=== PATIENT | male | born 1945 | race Caucasian/White ===

== ENCOUNTER 2022-09-13 09:47 | Outpatient (CLI) | payer MEDICARE | END 2022-09-13 23:59 | disposition home health service (06) | LOC: WOU 09:47 | PROVIDERS: ATTEND Podiatrist Foot & Ankle Surgery | DX: S80.861A Insect bite (nonvenomous), right lower leg, initial encounter (principal); L03.115 Cellulitis of right lower limb; W57.XXXA Bitten or stung by nonvenomous insect and other nonvenomous arthropods, initial encounter; Y93.89 Activity, other specified; Y92.89 Other specified places as the place of occurrence of the external cause; I48.91 Unspecified atrial fibrillation; E11.9 Type 2 diabetes mellitus without complications; Z95.0 Presence of cardiac pacemaker | CPT/HCPCS: 11042 ==

== ENCOUNTER → 2022-09-20 | Outpatient (CLI) | payer MEDICARE | END | disposition home health service (06) | LOC: WOU 10:00 | PROVIDERS: ATTEND Podiatrist Foot & Ankle Surgery | DX: S80.861A Insect bite (nonvenomous), right lower leg, initial encounter (principal); L03.115 Cellulitis of right lower limb; W57.XXXA Bitten or stung by nonvenomous insect and other nonvenomous arthropods, initial encounter; Y93.89 Activity, other specified; Y92.89 Other specified places as the place of occurrence of the external cause; M79.661 Pain in right lower leg; E11.9 Type 2 diabetes mellitus without complications; I48.91 Unspecified atrial fibrillation; Z95.0 Presence of cardiac pacemaker | CPT/HCPCS: 11042 ==

== ENCOUNTER 2024-12-08 14:25 | Inpatient (IN) | payer MEDICARE, OTHER ==
[~2024-12-08] VITALS: Ht 175.3 cm; Wt 112.0 kg
[2024-12-08 15:36] LABS: BASOPHILS % (AUTO) 0.7 % (0.0-2.0); EOSINOPHILS % (AUTO) 0.8 % (0.0-6.0); HEMATOCRIT 36 % (39-51); HEMOGLOBIN 11.9 g/dL (13.5-17.5); LYMPHOCYTES # (AUTO) 1.5 K/uL (0.8-4.8); LYMPHOCYTES % (AUTO) 32.4 % (20.0-44.0); MEAN CORPUSCULAR HEMOGLOBIN 30 PG (26.0-33.0); MEAN CORPUSCULAR HGB CONC 33 g/dl (31.0-36.0); MEAN CORPUSCULAR VOLUME 90 fL (80-96); MONOCYTES # (AUTO) 0.3 K/uL (0.1-1.30); MONOCYTES % (AUTO) 7.2 % (2.0-12.0); NEUTROPHILS # (AUTO) 2.8 K/uL (1.8-8.9); NEUTROPHILS % (AUTO) 58.9 % (43.0-81.0); PLATELET COUNT (AUTO) 214 K/uL (150-450); RED BLOOD CELL COUNT(AUTO) 4.03 MIL/uL (4.5-6.0); RED CELL DISTRIBUTION WIDTH 20.3 % (11.5-15.0); WHITE BLOOD COUNT (AUTO) 4.8 K/uL (4.3-11.0)
[2024-12-08 15:49] LABS: CALCIUM, SERUM 9.3 mg/dL (8.5-10.1); CARBON DIOXIDE 32 mmol/L (21-32); CHLORIDE 108 mmol/L (98-107); CREATININE 1.7 mg/dL (0.6-1.3); GLUCOSE 130 mg/dL (74-106); POTASSIUM 3.9 mmol/L (3.5-5.1); SODIUM SERUM 143 mmol/L (136-145); UREA NITROGEN, BLOOD 34 mg/dL (7-18)
[2024-12-08] MEDS: VANCOMYCIN 1 GM in IV D5W 250 ML IV ONE (15:51)
[2024-12-08 15:55] LABS: ALANINE AMINOTRANSFERASE 39 U/L (12-78); ALBUMIN 2.8 g/dL (3.4-5.0); ALKALINE PHOSPHATASE 74 U/L (46-116); ASPARTATE AMINOTRANSFERASE 25 U/L (15-37); BILIRUBIN,DIRECT 0.1 mg/dL (0.0-0.2); BILIRUBIN,TOTAL 0.4 mg/dL (0.2-1.0); TOTAL PROTEIN, SERUM 6.9 g/dL (6.4-8.2)
[2024-12-08 15:56] LABS: INR 1.05 (0.91-1.10); PROTHROMBIN TIME 11.1 SECS (9.2-11.1)
[2024-12-08 17:05] LABS: NEUTROPHILS % (MANUAL) 68 (42-76)
[2024-12-08 17:06] LABS: BAND % (MANUAL) 2 % (0.0-5.0); EOSINOPHILS % (MANUAL) 1 % (0-4); LYMPHOCYTES % (MANUAL) 23 % (16-48); MONOCYTES % (MANUAL) 5 % (0-11.0); MYELOCYTES % 1 % (0-0); PLATELET ESTIMATE ADEQUATE
[2024-12-08 17:07] LABS: ANISOCYTOSIS 1+
[2024-12-08] MEDS: FUROSEMIDE 20 MG/2 ML VIAL IV ONE (17:35)
[2024-12-08] MEDS ORDERED: HYDR-4077 PO (18:26)
[2024-12-08] MEDS ORDERED: MEMA14CA5 PO (18:26)
[2024-12-08] MEDS ORDERED: EVOL140P3 SQ (18:26)
[2024-12-08] MEDS ORDERED: LEVE500T20 PO (18:26)
[2024-12-08] MEDS ORDERED: FURO20TA4 PO (18:26)
[2024-12-08] MEDS ORDERED: CLON2TAB PO (18:26)
[2024-12-08] MEDS ORDERED: FLUT1BLS6 INH (18:26)
[2024-12-08] MEDS ORDERED: MONT10TA22 PO (18:26)
[2024-12-08] MEDS ORDERED: DOXA4TAB19 PO (18:26)
[2024-12-08] MEDS ORDERED: INSU100V11 SQ (18:26)
[2024-12-08] MEDS ORDERED: ALBU18HF2 INH (18:26)
[2024-12-08] MEDS ORDERED: FINA5TAB11 PO (18:26)
[2024-12-08] MEDS ORDERED: ROPI2TAB7 PO (18:26)
[2024-12-08] MEDS ORDERED: SEMA1PEN SQ (18:26)
[2024-12-08] MEDS ORDERED: KERENDIA PO (18:26)
[2024-12-08] MEDS ORDERED: NEBI10TA2 PO (18:26)
[2024-12-08] MEDS ORDERED: GLIM4TAB37 PO (18:26)
[2024-12-08] MEDS ORDERED: GABA300C PO (18:26)
[2024-12-08] MEDS ORDERED: POTA-10 PO (18:26)
[2024-12-08] MEDS ORDERED: OMEP1CAP25 PO (18:26)
[2024-12-08] MEDS ORDERED: ONDANSETRON HCL/PF 4 MG/2 ML VIAL IVP PRN (18:30)
[2024-12-08] MEDS ORDERED: ACETAMINOPHEN 325 MG TABLET PO PRN (18:30)
[2024-12-08] MEDS ORDERED: MAGNESIUM HYDROXIDE 30 ML UDC PO PRN (18:30)
[2024-12-08] MEDS ORDERED: Z GUARD REMEDY 4 OZ OINT TP PRN (18:30)
[2024-12-08] MEDS ORDERED: DEXTROSE 50%-WATER 50 ML DISP.SYRIN IV PRN (19:00)
[2024-12-08 20:00] VITALS: BP 109/63; TEMP 97.5; O2SAT 97
[2024-12-08] MEDS: VANCOMYCIN 1 GM in IV D5W 250ml IV ONE (20:53)
[2024-12-08] MEDS: INSULIN REGULAR, HUMAN 100 UNIT/ML 3 ML VIAL SQ PRN (22:49)
[2024-12-08] MEDS: BLOOD SUGAR DIAGNOSTIC 1 EACH STRIP IN SCH (22:58)
[2024-12-09 04:00] VITALS: BP 124/72; TEMP 97.5; O2SAT 94
[2024-12-09] MEDS: PANTOPRAZOLE 40 MG TABLET.DR PO SCH (06:44)
[2024-12-09 08:05] LABS: CALCIUM, SERUM 9.2 mg/dL (8.5-10.1); CREATININE 1.4 mg/dL (0.6-1.3); MAGNESIUM 1.9 mg/dL (1.8-2.4); PHOSPHORUS 4.3 mg/dL (2.5-4.9); POTASSIUM 4.1 mmol/L (3.5-5.1)
[2024-12-09 08:31] LABS: BASOPHILS % (AUTO) 0.4 % (0.0-2.0); EOSINOPHILS % (AUTO) 0.8 % (0.0-6.0); HEMATOCRIT 38 % (39-51); HEMOGLOBIN 12.3 g/dL (13.5-17.5); LYMPHOCYTES # (AUTO) 1.4 K/uL (0.8-4.8); LYMPHOCYTES % (AUTO) 28.3 % (20.0-44.0); MEAN CORPUSCULAR HEMOGLOBIN 29 PG (26.0-33.0); MEAN CORPUSCULAR HGB CONC 32 g/dl (31.0-36.0); MEAN CORPUSCULAR VOLUME 89 fL (80-96); MONOCYTES # (AUTO) 0.4 K/uL (0.1-1.30); MONOCYTES % (AUTO) 7.4 % (2.0-12.0); NEUTROPHILS # (AUTO) 3.1 K/uL (1.8-8.9); NEUTROPHILS % (AUTO) 63.1 % (43.0-81.0); PLATELET COUNT (AUTO) 226 K/uL (150-450); RED CELL DISTRIBUTION WIDTH 20.2 % (11.5-15.0); WHITE BLOOD COUNT (AUTO) 4.9 K/uL (4.3-11.0)
[2024-12-09] MEDS ORDERED: clonazePAM 1 MG TABLET PO PRN (11:00)
[2024-12-09] MEDS ORDERED: hydrALAZINE HCL 50 MG TABLET PO PRN (11:00)
[2024-12-09] MEDS ORDERED: ALBUTEROL FS 2.5 MG/3 ML VIAL.NEB NEB PRN (11:00)
[2024-12-09] MEDS: GABAPENTIN 300 MG CAPSULE PO SCH (13:30)
[2024-12-09 16:00] VITALS: BP 130/72; TEMP 97.9; O2SAT 97
[2024-12-09] MEDS: APIXABAN 2.5 MG TABLET PO SCH (16:41)
[2024-12-09 17:36] LABS: NEUTROPHILS % (MANUAL) 59 (42-76)
[2024-12-09 17:37] LABS: EOSINOPHILS % (MANUAL) 2 % (0-4); LYMPHOCYTES % (MANUAL) 31 % (16-48); MONOCYTES % (MANUAL) 6 % (0-11.0); PLATELET ESTIMATE ADEQUATE; REACTIVE LYMPHOCYTES 2 % (0-0)
[2024-12-09 17:38] LABS: ANISOCYTOSIS 1+; OVALOCYTES FEW
[2024-12-09 20:00] VITALS: BP 107/72; TEMP 98.2; O2SAT 97
[2024-12-09] MEDS: VANCOMYCIN 1 GM in IV D5W 250ml IV SCH (20:44)
[2024-12-09] MEDS: LEVETIRACETAM (250 MG) 250 MG TABLET PO SCH (21:00)
[2024-12-09] MEDS: POTASSIUM CHLORIDE 10 MEQ TABLET.SA PO SCH (21:00)
[2024-12-09] MEDS: DOXAZOSIN MESYLATE (4 MG) 4 MG TABLET PO SCH (21:09)
[2024-12-09] MEDS: METOPROLOL TARTRATE 50 MG TABLET PO SCH (21:09)
[2024-12-09] MEDS: ropiniROLE 0.5 MG TABLET PO SCH (21:10)
[2024-12-09] MEDS: MONTELUKAST SODIUM (10MG) 10 MG TABLET PO SCH (21:10)
[2024-12-10 04:00] VITALS: BP 112/67; TEMP 98.1; O2SAT 95
[2024-12-10 08:00] VITALS: BP 111/96; TEMP 97; O2SAT 94
[2024-12-10] MEDS: FUROSEMIDE 20 MG TABLET PO SCH (08:07)
[2024-12-10] MEDS: FINASTERIDE (5 MG) 5 MG TABLET PO SCH (08:08)
[2024-12-10 08:39] LABS: ALBUMIN 2.6 g/dL (3.4-5.0); BILIRUBIN,TOTAL 0.7 mg/dL (0.2-1.0); CALCIUM, SERUM 8.9 mg/dL (8.5-10.1); CREATININE 1.5 mg/dL (0.6-1.3); PHOSPHORUS 3.8 mg/dL (2.5-4.9); POTASSIUM 3.9 mmol/L (3.5-5.1); TOTAL PROTEIN, SERUM 6.4 g/dL (6.4-8.2)
[2024-12-10] MEDS ORDERED: Medication Not On Formulary EA (Fluticasone/Umeclidin/Vilanter (Trelegy Ellipta 100-62.5 INH SCH (09:00)
[2024-12-10] MEDS ORDERED: Medication Not On Formulary EA (Omeprazole/Sodium Bicarbonate (Omeprazole-Bicarb 40-1,10 PO SCH (09:00)
[2024-12-10 09:12] LABS: BASOPHILS % (AUTO) 0.3 % (0.0-2.0); EOSINOPHILS % (AUTO) 0.8 % (0.0-6.0); HEMATOCRIT 36 % (39-51); HEMOGLOBIN 11.7 g/dL (13.5-17.5); LYMPHOCYTES % (AUTO) 26.2 % (20.0-44.0); MEAN CORPUSCULAR HEMOGLOBIN 29 PG (26.0-33.0); MEAN CORPUSCULAR HGB CONC 32 g/dl (31.0-36.0); MEAN CORPUSCULAR VOLUME 90 fL (80-96); MONOCYTES # (AUTO) 0.3 K/uL (0.1-1.30); MONOCYTES % (AUTO) 7.6 % (2.0-12.0); NEUTROPHILS # (AUTO) 2.6 K/uL (1.8-8.9); NEUTROPHILS % (AUTO) 65.1 % (43.0-81.0); PLATELET COUNT (AUTO) 199 K/uL (150-450); RED BLOOD CELL COUNT(AUTO) 4.01 MIL/uL (4.5-6.0); RED CELL DISTRIBUTION WIDTH 20.4 % (11.5-15.0)
[2024-12-10 12:00] VITALS: O2SAT 95
[2024-12-10 16:00] VITALS: BP 123/61; TEMP 97.7; O2SAT 95
[2024-12-10 20:00] VITALS: BP 107/67; TEMP 97.7; O2SAT 93
[2024-12-10] MEDS ORDERED: VANCOMYCIN 1 GM in IV D5W 250ml IV SCH (20:00)
[2024-12-10] MEDS: VANCOMYCIN 1 GM in IV D5W 250ml IV SCH (21:55)
[2024-12-10] MEDS: MAG HYDROX/AL HYDROX/SIMETH 30 ML UDC PO PRN (22:25)
[2024-12-10 22:47] LABS: PLATELET ESTIMATE ADEQUATE
[2024-12-10 22:51] LABS: LYMPHOCYTES % (MANUAL) 23 % (16-48); MONOCYTES % (MANUAL) 4 % (0-11.0); NEUTROPHILS % (MANUAL) 73 (42-76)
[2024-12-10 22:52] LABS: ANISOCYTOSIS 1+; OVALOCYTES 1+
[2024-12-11 04:00] VITALS: BP 102/59; TEMP 97.7; O2SAT 95
[2024-12-11 07:07] LABS: PTH, INTACT 26 pg/mL (15-65)
[2024-12-11 09:11] LABS: BASOPHILS % (AUTO) 0.2 % (0.0-2.0); EOSINOPHILS # (AUTO) 0.2 K/uL (0.0-0.7); EOSINOPHILS % (AUTO) 2.7 % (0.0-6.0); HEMATOCRIT 40 % (39-51); HEMOGLOBIN 12.8 g/dL (13.5-17.5); LYMPHOCYTES # (AUTO) 1.8 K/uL (0.8-4.8); LYMPHOCYTES % (AUTO) 31.1 % (20.0-44.0); MEAN CORPUSCULAR HEMOGLOBIN 30 PG (26.0-33.0); MEAN CORPUSCULAR HGB CONC 33 g/dl (31.0-36.0); MEAN CORPUSCULAR VOLUME 91 fL (80-96); MONOCYTES # (AUTO) 0.4 K/uL (0.1-1.30); MONOCYTES % (AUTO) 7.2 % (2.0-12.0); NEUTROPHILS # (AUTO) 3.4 K/uL (1.8-8.9); NEUTROPHILS % (AUTO) 58.8 % (43.0-81.0); PLATELET COUNT (AUTO) 212 K/uL (150-450); RED BLOOD CELL COUNT(AUTO) 4.33 MIL/uL (4.5-6.0); RED CELL DISTRIBUTION WIDTH 20.4 % (11.5-15.0); WHITE BLOOD COUNT (AUTO) 5.8 K/uL (4.3-11.0)
[2024-12-11 09:15] LABS: CALCIUM, SERUM 9.3 mg/dL (8.5-10.1); CREATININE 1.5 mg/dL (0.6-1.3); POTASSIUM 3.8 mmol/L (3.5-5.1)
[2024-12-11 12:00] VITALS: BP 119/72; TEMP 97.5; O2SAT 95
[2024-12-11 20:00] VITALS: BP 109/64; TEMP 97.9; O2SAT 94
[2024-12-12 04:00] VITALS: BP 99/67; TEMP 97.7; O2SAT 97
[2024-12-12 08:45] LABS: BASOPHILS % (AUTO) 0.4 % (0.0-2.0); HEMATOCRIT 35 % (39-51); HEMOGLOBIN 11.3 g/dL (13.5-17.5); LYMPHOCYTES # (AUTO) 1.2 K/uL (0.8-4.8); LYMPHOCYTES % (AUTO) 29.8 % (20.0-44.0); MEAN CORPUSCULAR HEMOGLOBIN 29 PG (26.0-33.0); MEAN CORPUSCULAR HGB CONC 33 g/dl (31.0-36.0); MEAN CORPUSCULAR VOLUME 89 fL (80-96); MONOCYTES # (AUTO) 0.4 K/uL (0.1-1.30); MONOCYTES % (AUTO) 9.2 % (2.0-12.0); NEUTROPHILS # (AUTO) 2.4 K/uL (1.8-8.9); NEUTROPHILS % (AUTO) 59.6 % (43.0-81.0); PLATELET COUNT (AUTO) 204 K/uL (150-450); RED BLOOD CELL COUNT(AUTO) 3.89 MIL/uL (4.5-6.0); RED CELL DISTRIBUTION WIDTH 20.3 % (11.5-15.0)
[2024-12-12 08:52] LABS: CALCIUM, SERUM 8.9 mg/dL (8.5-10.1); CREATININE 1.3 mg/dL (0.6-1.3); POTASSIUM 3.6 mmol/L (3.5-5.1)
[2024-12-12 11:08] VITALS: BP 99/67; TEMP 97.7; O2SAT 97
[2024-12-12 12:17] LABS: ANISOCYTOSIS 1+; BAND % (MANUAL) 1 % (0.0-5.0); LYMPHOCYTES % (MANUAL) 28 % (16-48); MONOCYTES % (MANUAL) 4 % (0-11.0); NEUTROPHILS % (MANUAL) 66 (42-76); PLATELET ESTIMATE ADEQUATE
[2024-12-12 16:00] VITALS: BP 114/76; TEMP 97.5; O2SAT 97
[2024-12-12 20:00] VITALS: BP 108/78; TEMP 98.2; O2SAT 97
[2024-12-13 04:00] VITALS: BP 109/65; TEMP 97.9; O2SAT 98
[2024-12-13 07:14] LABS: BASOPHILS % (AUTO) 0.4 % (0.0-2.0); EOSINOPHILS % (AUTO) 0.9 % (0.0-6.0); HEMATOCRIT 35 % (39-51); HEMOGLOBIN 11.5 g/dL (13.5-17.5); LYMPHOCYTES # (AUTO) 1.2 K/uL (0.8-4.8); LYMPHOCYTES % (AUTO) 29.7 % (20.0-44.0); MEAN CORPUSCULAR HEMOGLOBIN 29 PG (26.0-33.0); MEAN CORPUSCULAR HGB CONC 33 g/dl (31.0-36.0); MEAN CORPUSCULAR VOLUME 90 fL (80-96); MONOCYTES # (AUTO) 0.3 K/uL (0.1-1.30); MONOCYTES % (AUTO) 8.4 % (2.0-12.0); NEUTROPHILS # (AUTO) 2.5 K/uL (1.8-8.9); NEUTROPHILS % (AUTO) 60.6 % (43.0-81.0); PLATELET COUNT (AUTO) 204 K/uL (150-450); RED BLOOD CELL COUNT(AUTO) 3.93 MIL/uL (4.5-6.0); RED CELL DISTRIBUTION WIDTH 20.3 % (11.5-15.0); WHITE BLOOD COUNT (AUTO) 4.1 K/uL (4.3-11.0)
[2024-12-13 07:48] LABS: CALCIUM, SERUM 8.9 mg/dL (8.5-10.1); CARBON DIOXIDE 32 mmol/L (21-32); CHLORIDE 105 mmol/L (98-107); CREATININE 1.4 mg/dL (0.6-1.3); GLUCOSE 104 mg/dL (74-106); POTASSIUM 3.8 mmol/L (3.5-5.1); SODIUM SERUM 144 mmol/L (136-145); UREA NITROGEN, BLOOD 26 mg/dL (7-18)
[2024-12-13 08:00] VITALS: BP 116/73; TEMP 98.2; O2SAT 98
[2024-12-13 09:13] VITALS: BP 116/73
== END 2024-12-13 15:06 | disposition home health service (06) | DRG 300 ==
LOC: ER 14:33 → TELE-TD 17:30 → TELE1 17:50 → MEDSG1 18:39 → TELE1 12-09 01:12 → MEDSG1 12-09 09:28
DX: I87.2 Venous insufficiency (chronic) (peripheral) (principal); E44.0 Moderate protein-calorie malnutrition; N17.9 Acute kidney failure, unspecified; I13.0 Hypertensive heart and chronic kidney disease with heart failure and stage 1 through stage 4 chronic kidney disease, or unspecified chronic kidney disease; I50.32 Chronic diastolic (congestive) heart failure; E87.20 Acidosis, unspecified; L97.929 Non-pressure chronic ulcer of unspecified part of left lower leg with unspecified severity; N18.4 Chronic kidney disease, stage 4 (severe); L97.919 Non-pressure chronic ulcer of unspecified part of right lower leg with unspecified severity; E87.0 Hyperosmolality and hypernatremia; Z95.810 Presence of automatic (implantable) cardiac defibrillator; E11.22 Type 2 diabetes mellitus with diabetic chronic kidney disease; E11.40 Type 2 diabetes mellitus with diabetic neuropathy, unspecified; E88.09 Other disorders of plasma-protein metabolism, not elsewhere classified; D64.9 Anemia, unspecified; Z79.51 Long term (current) use of inhaled steroids; Z79.85 Long-term (current) use of injectable non-insulin antidiabetic drugs; Z79.4 Long term (current) use of insulin; Z79.84 Long term (current) use of oral hypoglycemic drugs; Z79.899 Other long term (current) drug therapy; I87.8 Other specified disorders of veins; M89.8X9 Other specified disorders of bone, unspecified site; Z68.32 Body mass index [BMI] 32.0-32.9, adult; E66.9 Obesity, unspecified; B35.1 Tinea unguium; N28.1 Cyst of kidney, acquired
CPT/HCPCS: 36415; 71045-TC; 73590-TC; 76770-TC; 80048-TC; 80053-TC; 80076-TC; 80202-TC; 82550-TC; 82962-TC; 83605-TC; 83735-TC; 83880; 83970; 84100-TC; 84155; 84165; 84484-TC; 85025-TC; 85730-TC; 87040-TC; 87081-TC; 93307-TC; 93970-TC; 97110-TC; 97116-TC; 97530-TC; A4223; A6253; A6403; G0378; J1815; J1940; J3370; J7050; J7060

== ENCOUNTER 2024-12-14 21:19 | Inpatient (IN) | payer MEDICARE, OTHER ==
[~2024-12-14] VITALS: Ht 175.3 cm; Wt 111.1 kg
[~2024-12-14 21:19] MED LIST: ALBU18HF2 INH; CLON2TAB PO; DOXA4TAB19 PO; EVOL140P3 SQ; FINA5TAB11 PO; FLUT1BLS6 INH; FURO20TA4 PO; GABA300C PO; GLIM4TAB37 PO; HYDR-4077 PO; INSU100V11 SQ; KERENDIA PO; LEVE500T20 PO; MEMA14CA5 PO; MONT10TA22 PO; NEBI10TA2 PO; OMEP1CAP25 PO; POTA-10 PO; ROPI2TAB7 PO; SEMA1PEN SQ
[2024-12-14] MEDS ORDERED: DEXTROSE 50%-WATER 50 ML DISP.SYRIN ONE (21:29)
[2024-12-14 21:43] LABS: BASOPHILS # (AUTO) 0.1 K/uL (0.0-0.2); BASOPHILS % (AUTO) 0.9 % (0.0-2.0); EOSINOPHILS # (AUTO) 0.1 K/uL (0.0-0.7); EOSINOPHILS % (AUTO) 1.2 % (0.0-6.0); HEMATOCRIT 34 % (39-51); HEMOGLOBIN 11.3 g/dL (13.5-17.5); LYMPHOCYTES # (AUTO) 2.5 K/uL (0.8-4.8); MEAN CORPUSCULAR HEMOGLOBIN 30 PG (26.0-33.0); MEAN CORPUSCULAR HGB CONC 33 g/dl (31.0-36.0); MEAN CORPUSCULAR VOLUME 90 fL (80-96); MONOCYTES # (AUTO) 0.5 K/uL (0.1-1.30); MONOCYTES % (AUTO) 8.1 % (2.0-12.0); NEUTROPHILS % (AUTO) 48.8 % (43.0-81.0); PLATELET COUNT (AUTO) 209 K/uL (150-450); RED BLOOD CELL COUNT(AUTO) 3.75 MIL/uL (4.5-6.0); RED CELL DISTRIBUTION WIDTH 20.7 % (11.5-15.0); WHITE BLOOD COUNT (AUTO) 6.1 K/uL (4.3-11.0)
[2024-12-14 21:50] LABS: CALCIUM, SERUM 8.9 mg/dL (8.5-10.1); CARBON DIOXIDE 33 mmol/L (21-32); CHLORIDE 105 mmol/L (98-107); CREATININE 1.8 mg/dL (0.6-1.3); GLUCOSE 60 mg/dL (74-106); POTASSIUM 3.3 mmol/L (3.5-5.1); SODIUM SERUM 143 mmol/L (136-145); UREA NITROGEN, BLOOD 29 mg/dL (7-18)
[2024-12-14 21:57] LABS: ABG BASE EXCESS -0.3 mmol/L (-2.0-3.0); ABG PCO2 52.8 mmHg (35.0-48.0); ABG PH 7.316 (7.350-7.450); ABG PO2 290.4 mmHg (83.0-108.0); ABG TOTAL HEMOGLOBIN 10.9 G/dL (13.5-17.5); COHb 0.3 % (0.5-1.5); MetHb 0.1 % (0.0-1.5); O2Hb 98.6 % (94.0-97.0); SITE, ABG RIGHT RADIAL
[2024-12-14] MEDS: DEXTROSE 50%-WATER 50 ML DISP.SYRIN IVP ONE (21:57)
[2024-12-14 22:03] LABS: ALANINE AMINOTRANSFERASE 29 U/L (12-78); ALBUMIN 3.1 g/dL (3.4-5.0); ALKALINE PHOSPHATASE 64 U/L (46-116); ASPARTATE AMINOTRANSFERASE 25 U/L (15-37); BILIRUBIN,DIRECT 0.1 mg/dL (0.0-0.2); BILIRUBIN,TOTAL 0.4 mg/dL (0.2-1.0); NT-PRO BNP 3063 pg/mL (0-125)
[2024-12-14] MEDS ORDERED: MAG HYDROX/AL HYDROX/SIMETH 30 ML UDC PO PRN (23:30)
[2024-12-14] MEDS ORDERED: Medication Not On Formulary EA (Evolocumab (Repatha Sureclick) 140 MG) SQ SCH (23:30)
[2024-12-14] MEDS ORDERED: hydrALAZINE HCL 50 MG TABLET PO PRN (23:30)
[2024-12-14] MEDS ORDERED: ONDANSETRON HCL/PF 4 MG/2 ML VIAL IVP PRN (23:30)
[2024-12-14] MEDS ORDERED: ACETAMINOPHEN 325 MG TABLET PO PRN (23:30)
[2024-12-14] MEDS ORDERED: clonazePAM 2 MG TABLET PO PRN (23:30)
[2024-12-15] VITALS (29 sets, daily range): BP systolic 97–124; BP diastolic 55–92; TEMP 98.4–98.9; O2SAT 85–100
[2024-12-15] MEDS ORDERED: DEXTROSE 50%-WATER 50 ML DISP.SYRIN IV PRN
[2024-12-15] MEDS: MONTELUKAST SODIUM (10MG) 10 MG TABLET PO SCH (00:30)
[2024-12-15] MEDS: MEMANTINE HCL 5 MG TABLET PO SCH (00:30)
[2024-12-15] MEDS: GABAPENTIN 300 MG CAPSULE PO SCH (00:30)
[2024-12-15] MEDS: DOXAZOSIN MESYLATE (4 MG) 4 MG TABLET PO SCH (00:30)
[2024-12-15] MEDS: ENOXAPARIN SODIUM 40 MG/0.4 ML DISP.SYRIN SQ SCH (00:55)
[2024-12-15] MEDS: POTASSIUM CL. PREMIX PERIPHER. 50 ML IV SCH (00:56)
[2024-12-15] MEDS: PANTOPRAZOLE 40 MG VIAL IV SCH (00:56)
[2024-12-15] MEDS ORDERED: IV NS 0.9% 250 ML IV PRN (01:00)
[2024-12-15] MEDS ORDERED: LEVETIRACETAM (500MG) 500 MG/5 ML VIAL IV ONE (01:02)
[2024-12-15] MEDS: LEVETIRACETAM (500MG) 500 MG in IV NS 0.9% 100 ML IV SCH ×2 (01:08→21:13)
[2024-12-15 02:15] LABS: ABG BASE EXCESS 3.2 mmol/L (-2.0-3.0); ABG OXYGEN SATURATION 98.5 % (94.0-98.0); ABG PCO2 50.4 mmHg (35.0-48.0); ABG PH 7.379 (7.350-7.450); ABG PO2 163.4 mmHg (83.0-108.0); ABG TOTAL HEMOGLOBIN 10.9 G/dL (13.5-17.5); COHb 0.2 % (0.5-1.5); O2Hb 98.3 % (94.0-97.0); SITE, ABG LEFT RADIAL
[2024-12-15 04:22] LABS: BASOPHILS % (AUTO) 0.5 % (0.0-2.0); EOSINOPHILS # (AUTO) 0.1 K/uL (0.0-0.7); EOSINOPHILS % (AUTO) 1.4 % (0.0-6.0); HEMATOCRIT 32 % (39-51); HEMOGLOBIN 10.6 g/dL (13.5-17.5); LYMPHOCYTES % (AUTO) 23.2 % (20.0-44.0); MEAN CORPUSCULAR HEMOGLOBIN 30 PG (26.0-33.0); MEAN CORPUSCULAR HGB CONC 33 g/dl (31.0-36.0); MEAN CORPUSCULAR VOLUME 91 fL (80-96); MONOCYTES # (AUTO) 0.4 K/uL (0.1-1.30); MONOCYTES % (AUTO) 8.8 % (2.0-12.0); NEUTROPHILS # (AUTO) 2.9 K/uL (1.8-8.9); NEUTROPHILS % (AUTO) 66.1 % (43.0-81.0); PLATELET COUNT (AUTO) 189 K/uL (150-450); RED BLOOD CELL COUNT(AUTO) 3.55 MIL/uL (4.5-6.0); RED CELL DISTRIBUTION WIDTH 20.3 % (11.5-15.0); WHITE BLOOD COUNT (AUTO) 4.3 K/uL (4.3-11.0)
[2024-12-15 04:39] LABS: CALCIUM, SERUM 8.7 mg/dL (8.5-10.1); CREATININE 1.6 mg/dL (0.6-1.3); MAGNESIUM 2.3 mg/dL (1.8-2.4); PHOSPHORUS 4.3 mg/dL (2.5-4.9); POTASSIUM 3.8 mmol/L (3.5-5.1)
[2024-12-15 07:26] LABS: EOSINOPHILS % (MANUAL) 2 % (0-4); LYMPHOCYTES % (MANUAL) 16 % (16-48); MONOCYTES % (MANUAL) 2 % (0-11.0); NEUTROPHILS % (MANUAL) 80 (42-76); PLATELET ESTIMATE ADEQUATE
[2024-12-15 07:27] LABS: OVALOCYTES 1+
[2024-12-15] MEDS: BLOOD SUGAR DIAGNOSTIC 1 EACH STRIP VI SCH (08:09)
[2024-12-15] MEDS: METOPROLOL TARTRATE 50 MG TABLET PO SCH (08:10)
[2024-12-15] MEDS: FINASTERIDE (5 MG) 5 MG TABLET PO SCH (08:10)
[2024-12-15] MEDS: PANTOPRAZOLE 40 MG TABLET.DR PO SCH (08:53)
[2024-12-15] MEDS ORDERED: Medication Not On Formulary EA (Fluticasone/Umeclidin/Vilanter (Trelegy Ellipta 100-62.5 INH SCH (09:00)
[2024-12-15] MEDS: GLIMEPIRIDE 4 MG TABLET PO SCH (09:21)
[2024-12-15 09:36] LABS: ABG PCO2 46.7 mmHg (35.0-48.0); ABG PH 7.414 (7.350-7.450); ABG PO2 89.8 mmHg (83.0-108.0); ABG TOTAL HEMOGLOBIN 10.8 G/dL (13.5-17.5); SITE, ABG LEFT RADIAL
[2024-12-15 09:37] LABS: ABG OXYGEN SATURATION 95.1 % (94.0-98.0); COHb 0.3 % (0.5-1.5); MetHb 0.3 % (0.0-1.5); O2Hb 94.5 % (94.0-97.0)
[2024-12-15] MEDS: POTASSIUM CHLORIDE 20 MEQ TAB.PRT.SR PO SCH (10:12)
[2024-12-15] MEDS: FUROSEMIDE 100 MG/10 ML VIAL IV SCH (10:12)
[2024-12-15] MEDS: CLOTRIMAZOLE 1% 15 GM TUBE TP SCH (11:27)
[2024-12-15] MEDS: Z GUARD REMEDY 4 OZ OINT TP SCH (11:27)
[2024-12-15] MEDS: INSULIN REGULAR, HUMAN 100 UNIT/ML 3 ML VIAL SQ PRN (12:25)
[2024-12-15] MEDS: ropiniROLE 0.5 MG TABLET PO SCH (21:23)
[2024-12-15] MEDS: *INSULIN REGULAR(HUMULIN R)HUM 100 UNIT/ML VIAL SQ PRN (21:28)
[2024-12-16] VITALS (13 sets, daily range): BP systolic 100–138; BP diastolic 62–77; TEMP 97.5–98.7; O2SAT 94–97
[2024-12-16 04:04] LABS: BASOPHILS % (AUTO) 0.3 % (0.0-2.0); EOSINOPHILS # (AUTO) 0.1 K/uL (0.0-0.7); EOSINOPHILS % (AUTO) 1.6 % (0.0-6.0); HEMATOCRIT 37 % (39-51); LYMPHOCYTES # (AUTO) 1.3 K/uL (0.8-4.8); LYMPHOCYTES % (AUTO) 27.8 % (20.0-44.0); MEAN CORPUSCULAR HEMOGLOBIN 29 PG (26.0-33.0); MEAN CORPUSCULAR HGB CONC 33 g/dl (31.0-36.0); MEAN CORPUSCULAR VOLUME 90 fL (80-96); MONOCYTES # (AUTO) 0.4 K/uL (0.1-1.30); MONOCYTES % (AUTO) 9.1 % (2.0-12.0); NEUTROPHILS # (AUTO) 2.8 K/uL (1.8-8.9); NEUTROPHILS % (AUTO) 61.2 % (43.0-81.0); PLATELET COUNT (AUTO) 206 K/uL (150-450); RED BLOOD CELL COUNT(AUTO) 4.09 MIL/uL (4.5-6.0); WHITE BLOOD COUNT (AUTO) 4.5 K/uL (4.3-11.0)
[2024-12-16 04:28] LABS: ALBUMIN 2.9 g/dL (3.4-5.0); BILIRUBIN,TOTAL 0.6 mg/dL (0.2-1.0); CREATININE 1.7 mg/dL (0.6-1.3); MAGNESIUM 2.1 mg/dL (1.8-2.4); PHOSPHORUS 4.8 mg/dL (2.5-4.9); POTASSIUM 3.3 mmol/L (3.5-5.1); TOTAL PROTEIN, SERUM 6.9 g/dL (6.4-8.2)
[2024-12-16 06:03] LABS: ANISOCYTOSIS 1+; BASOPHILS % (MANUAL) 0 % (0.0-2.0); EOSINOPHILS % (MANUAL) 1 % (0-4); LYMPHOCYTES % (MANUAL) 38 % (16-48); MONOCYTES % (MANUAL) 8 % (0-11.0); NEUTROPHILS % (MANUAL) 53 (42-76); PLATELET ESTIMATE ADEQUATE
[2024-12-16 07:38] LABS: APPEARANCE,URINE CLEAR (CLEAR); BILIRUBIN,URINE NEGATIVE (NEGATIVE); BLOOD, URINE NEGATIVE Ery/uL (NEGATIVE); COLOR,URINE YELLOW (YELLOW); KETONES,URINE NEGATIVE (NEGATIVE); LEUKOCYTE ESTERASE ,URINE NEGATIVE (NEGATIVE); NITRITE, URINE NEGATIVE (NEGATIVE); PROTEIN,URINE NEGATIVE (NEGATIVE); UGLUCOSE 2+ mg/dL (NEGATIVE); UROBILINOGEN,URINE 0.2 EU/dL (0.2)
[2024-12-16 09:08] LABS: ADD URINE CULTURE NO; BACTERIA,URINE Rare /HPF (None Seen); SQUAMOUS EPITHELIAL CELL,UR None Seen /HPF (None Seen); WBC,URINE 0-2 /HPF (0-3); YEAST,URINE Few /HPF (None Seen)
[2024-12-16] MEDS ORDERED: SACU1TAB7 PO (09:21)
[2024-12-16] MEDS ORDERED: SPIR25TA6 PO (09:21)
[2024-12-16] MEDS: POTASSIUM CHLORIDE 20 MEQ TAB.PRT.SR PO SCH (09:24)
[2024-12-16] MEDS: Z GUARD REMEDY 4 OZ OINT TP PRN (09:25)
[2024-12-16 10:39] LABS: EOSINOPHIL,URINE None Seen
[2024-12-16] MEDS ORDERED: LEVETIRACETAM (250 MG) 250 MG TABLET PO SCH (21:00)
== END 2024-12-16 18:19 | disposition home health service (06) | DRG 291 ==
LOC: ER 21:21 → ICU 22:47 → TELE 12-16 10:33 → MED 12-16 11:04
PROVIDERS: ADMIT Nurse Practitioner Acute Care; ATTEND Nurse Practitioner Acute Care
PROC: 5A09357 Assistance with Respiratory Ventilation, Less than 24 Consecutive Hours, Continuous Positive Airway Pressure (ICD-10-PCS; principal; 2024-12-14)
DX: I13.0 Hypertensive heart and chronic kidney disease with heart failure and stage 1 through stage 4 chronic kidney disease, or unspecified chronic kidney disease (principal); I50.33 Acute on chronic diastolic (congestive) heart failure; J96.01 Acute respiratory failure with hypoxia; J96.02 Acute respiratory failure with hypercapnia; N17.0 Acute kidney failure with tubular necrosis; E44.0 Moderate protein-calorie malnutrition; N18.4 Chronic kidney disease, stage 4 (severe); L03.115 Cellulitis of right lower limb; L03.116 Cellulitis of left lower limb; I87.333 Chronic venous hypertension (idiopathic) with ulcer and inflammation of bilateral lower extremity; L97.929 Non-pressure chronic ulcer of unspecified part of left lower leg with unspecified severity; L97.919 Non-pressure chronic ulcer of unspecified part of right lower leg with unspecified severity; E66.01 Morbid (severe) obesity due to excess calories; Z68.36 Body mass index [BMI] 36.0-36.9, adult; M89.8X9 Other specified disorders of bone, unspecified site; E11.22 Type 2 diabetes mellitus with diabetic chronic kidney disease; Z95.0 Presence of cardiac pacemaker; E11.40 Type 2 diabetes mellitus with diabetic neuropathy, unspecified; E88.09 Other disorders of plasma-protein metabolism, not elsewhere classified; D64.9 Anemia, unspecified; Z79.51 Long term (current) use of inhaled steroids; Z79.85 Long-term (current) use of injectable non-insulin antidiabetic drugs; Z79.4 Long term (current) use of insulin; Z79.84 Long term (current) use of oral hypoglycemic drugs; Z79.899 Other long term (current) drug therapy; I87.8 Other specified disorders of veins; I87.2 Venous insufficiency (chronic) (peripheral); G47.33 Obstructive sleep apnea (adult) (pediatric); E87.6 Hypokalemia
CPT/HCPCS: 36415; 36600; 71045-TC; 80048-TC; 80053-TC; 80076-TC; 81001; 82803-TC; 82962-TC; 83735-TC; 83880; 84100-TC; 84484-TC; 85025-TC; 87081-TC; 94799-TC; 97112-TC; 97116-TC; 97530-TC; 99082-TC; A4223; A6253; G0378; J1650; J1815; J1940; J1953; J2470; J3480; J7030; J7050

== ENCOUNTER 2025-01-26 11:52 | Outpatient (CLI) | payer MEDICARE, OTHER ==
[~2025-01-26 11:52] MED LIST changes: +SACU1TAB7 PO; +SPIR25TA6 PO
== END 2025-01-26 23:59 | disposition home health service (06) ==
LOC: WOU 11:52
PROVIDERS: ATTEND Podiatrist Foot & Ankle Surgery
DX: I87.313 Chronic venous hypertension (idiopathic) with ulcer of bilateral lower extremity (principal); L97.812 Non-pressure chronic ulcer of other part of right lower leg with fat layer exposed; L97.822 Non-pressure chronic ulcer of other part of left lower leg with fat layer exposed; I89.0 Lymphedema, not elsewhere classified; I87.2 Venous insufficiency (chronic) (peripheral); E11.42 Type 2 diabetes mellitus with diabetic polyneuropathy; E11.51 Type 2 diabetes mellitus with diabetic peripheral angiopathy without gangrene; Z79.84 Long term (current) use of oral hypoglycemic drugs; I10 Essential (primary) hypertension
CPT/HCPCS: G0463; A6207